=== PATIENT | female | born 1945 | race Caucasian/White ===

== ENCOUNTER 2019-10-28 18:12 | Emergency (ER) | payer OTHER, MEDICAID ==
[~2019-10-28] VITALS: Ht 162.6 cm; Wt 60.8 kg
[~2019-10-28 18:12] MED LIST: CETIRIZINE HYDR10 MG PO; CLINDAMYCIN HC300 MG PO; HYDROCHLOROTHIA25 MG PO; LAC PO; LEVAQUIN750 MG PO; MEDDP PO; RANITIDINE HCL150 M1 PO; ZESTRIL20 MG PO
[2019-10-28 18:31] VITALS: Ht 162.6 cm; Wt 60.8 kg
[2019-10-28 22:18] VITALS: BP 120/69
== END 2019-10-28 22:19 | disposition home or self-care (01) ==
LOC: ED 18:12
DX: S63.502A Unspecified sprain of left wrist, initial encounter (principal); M25.562 Pain in left knee; S00.83XA Contusion of other part of head, initial encounter; I10 Essential (primary) hypertension; M19.90 Unspecified osteoarthritis, unspecified site; Z88.5 Allergy status to narcotic agent; W01.0XXA Fall on same level from slipping, tripping and stumbling without subsequent striking against object, initial encounter; Y93.89 Activity, other specified; Y92.89 Other specified places as the place of occurrence of the external cause; Y99.8 Other external cause status
CPT/HCPCS: A4570